=== PATIENT | male | born 1965 | race Hispanic/Latino ===

== ENCOUNTER → 2023-10-13 | Outpatient (CLI) | payer OTHER ==
[~2023-10-13] MED LIST: CILO50TA2 PO; CLOP75TA32 PO; EZET-86 PO; IOHEXOL-350 50ML VIAL IV ONE; LINA1TAB5 PO; LISI10TA24 PO; METO25 PO; OSEL75 PO
== END | disposition home or self-care (01) ==
LOC: RAH 12:07
PROVIDERS: ATTEND Family Medicine
DX: S09.90XA Unspecified injury of head, initial encounter (principal); G93.89 Other specified disorders of brain; R55 Syncope and collapse; X58.XXXA Exposure to other specified factors, initial encounter; Y93.89 Activity, other specified; Y92.89 Other specified places as the place of occurrence of the external cause; Y99.8 Other external cause status
CPT/HCPCS: 70470; Q9967